=== PATIENT | female | born 1955 | race Caucasian/White ===

== ENCOUNTER 2021-02-03 10:15 | Emergency (ER) | payer BC ==
[2021-02-03] MEDS ORDERED: Morphine 4 MG/ML Syringe IVPUSH PRN (10:24)
[2021-02-03] MEDS ORDERED: Sodium Chloride 0.9% 10 ML Syringe FLUSH PRN (10:24)
[2021-02-03] MEDS ORDERED: Nitroglycerin 0.4 MG Tab.SL SL PRN (10:24)
[2021-02-03] MEDS ORDERED: Aspirin 81 MG Tab.Chew PO ONE (10:24)
--- NOTE | 2021-02-03 10:27 | EDM.PDOC ---
ED HPI GENERAL MEDICAL PROBLEM - General Stated Complaint: LEFT ARM PAIN AND CHEST PAIN Time Seen by Provider: 02/03/21 10:22 Source of Information: Reports: Patient, Family, RN Notes Reviewed History Limitations: Reports: No Limitations - History of Present Illness INITIAL COMMENTS - FREE TEXT/NARRATIVE: 65-year-old female presents emergency department day complaint of chest pain, she states the chest pain started last night it is kind of a dull ache rated 6 out of 10 she does feel short of breath has had diaphoresis on and off but no nausea. Does have a known cardiac history stenting 3 years ago last stress test was at that time. chest pain Pain Score (Numeric/FACES): 0 - Related Data Allergies Allergy/AdvReac Type Severity Reaction Status Date / Time hydrocodone Allergy Itching Verified 02/03/21 10:27 [id number] Reductase Allergy Sweating Verified 02/03/21 10:27 Inhibitor Home Meds: Home Meds Aspirin 81 mg PO BEDTIME 02/03/21 [History] Evolocumab [Repatha Syringe] 140 mg SQ ASDIRECTED 02/03/21 [History] Furosemide [Lasix] 40 mg PO ASDIRECTED PRN 02/03/21 [History] Gabapentin [Neurontin] 300 mg PO BEDTIME 02/03/21 [History] Magnesium 400 mg PO DAILY 02/03/21 [History] Metoprolol Succinate 50 mg PO DAILY 02/03/21 [History] Pramipexole Di-HCl [Mirapex] 0.5 mg PO DAILY 02/03/21 [History] Zolpidem Tartrate [Ambien] 10 mg PO DAILY 02/03/21 [History] buPROPion [buPROPion XL] 150 mg PO DAILY 02/03/21 [History] Past Medical History Cardiovascular History: Reports: CAD, High Cholesterol, Hypertension Social & Family History - Tobacco Use Tobacco Use Status *Q: Never Tobacco User ED ROS GENERAL - Review of Systems Review Of Systems: See Below Constitutional: Reports: Diaphoresis Respiratory: Reports: Shortness of Breath Cardiovascular: Reports: Chest Pain, Dyspnea on Exertion GI/Abdominal: Reports: No Symptoms ED EXAM, GENERAL - Physical Exam Exam: See Below Exam Limited By: No Limitations General Appearance: Alert, WD/WN, No Apparent Distress Respiratory/Chest: No Respiratory Distress, Lungs Clear, Normal Breath Sounds, No Accessory Muscle Use, Chest Non-Tender Cardiovascular: Regular Rate, Rhythm, No Murmur GI/Abdominal: Soft, Non-Tender #1 Interpretation EKG Date: 02/03/21 Time: 10:32 Rhythm: NSR [place]: Normal P-Wave: Present QRS: Normal ST-T: Normal QT: Normal Comparison: NA - No Prior EKG Course - Vital Signs Last Recorded V/S: Last Vital Signs Temp 96 F L 02/03/21 10:36 Pulse 76 02/03/21 10:36 Resp 12 02/03/21 11:13 BP 113/43 L 02/03/21 11:13 Pulse Ox 98 02/03/21 11:13 - Orders/Labs/Meds Orders: Active Orders 24 hr Category Date Time Status Cardiac Monitoring [RC] .As Directed Care 02/03/21 10:24 Active EKG Documentation Completion [RC] ASDIRECTED Care 02/03/21 10:25 Active Peripheral IV Care [RC] . DIRECTED Care 02/03/21 10:25 Active Morphine Med 02/03/21 10:24 Active 4 mg IVPUSH Q10M PRN Nitroglycerin [Nitrostat] Med 02/03/21 10:24 Active 0.4 mg SL Q5M PRN Sodium Chloride 0.9% [Saline Flush] Med 02/03/21 10:24 Active 10 ml FLUSH ASDIRECTED PRN Peripheral IV Insertion Adult [OM.PC] Stat Oth 02/03/21 10:24 Ordered Saline Lock Insert [OM.PC] Stat Oth 02/03/21 10:24 Ordered EKG 12 Lead [EK] Stat Ther 02/03/21 10:25 Ordered Medication Orders Morphine Sulfate (Morphine 4 Mg/Ml Syringe) 4 mg IVPUSH Q10M PRN PRN Reason: Chest Pain Stop: 02/04/21 10:25 Nitroglycerin (Nitroglycerin 0.4 Mg Tab.Sl) 0.4 mg SL Q5M PRN PRN Reason: Chest Pain Stop: 02/04/21 10:25 Last Admin: 02/03/21 10:30 Dose: 0.4 mg Documented by: DON Sodium Chloride (Sodium Chloride 0.9% 10 Ml Syringe) 10 ml FLUSH ASDIRECTED PRN PRN Reason: Keep Vein Open Last Admin: 02/03/21 10:51 Dose: 10 ml Documented by: DON Labs: Laboratory Tests 02/03/21 02/03/21 Range/Units 10:36 10:36 WBC 6.5 (4.5-11.0) K/uL RBC 4.56 (3.30-5.50) M/uL Hgb 13.9 (12.0-15.0) g/dL Hct 42.0 (36.0-48.0) % MCV 92 (80-98) fL MCH 31 (27-31) pg MCHC 33 (32-36) % Plt Count 280 (150-400) K/uL Neut % (Auto) 49.0 (36-66) % Lymph % (Auto) 35.5 (24-44) % Andrew % (Auto) 10.3 H (2-6) % Eos % (Auto) 4.9 H (2-4) % Baso % (Auto) 0.3 (0-1) % Sodium 141 (140-148) mmol/L Potassium 4.3 (3.6-5.2) mmol/L Chloride 105 (100-108) mmol/L Carbon Dioxide 28 (21-32) mmol/L Anion Gap 7.7 (5.0-14.0) mmol/L BUN 21 H (7-18) mg/dL Creatinine 0.9 (0.6-1.0) mg/dL Est Cr Clr Drug Dosing 54.53 mL/min Estimated GFR (MDRD) > 60 (>60) Glucose 108 H (74-106) mg/dL Calcium 8.9 (8.5-10.1) mg/dL Troponin I < 0.017 (0.000-0.056) ng/mL Meds: Medications Generic Name Dose Route Start Last Admin Trade Name Freq PRN Reason Stop Dose Admin Morphine Sulfate 4 mg 02/03/21 10:24 Morphine 4 Mg/Ml Syringe IVPUSH 02/04/21 10:25 Q10M PRN Chest Pain Nitroglycerin 0.4 mg 02/03/21 10:24 02/03/21 10:30 Nitroglycerin 0.4 Mg Tab.Sl SL 02/04/21 10:25 0.4 mg Q5M PRN Administration Chest Pain Sodium Chloride 10 ml 02/03/21 10:24 02/03/21 10:51 Sodium Chloride 0.9% 10 Ml Syringe FLUSH 10 ml ASDIRECTED PRN Administration Keep Vein Open Discontinued Medications Generic Name Dose Route Start Last Admin Trade Name [place] PRN Reason Stop Dose Admin Aspirin 324 mg 02/03/21 10:24 02/03/21 10:35 Aspirin 81 Mg Tab.Chew PO 02/03/21 10:25 324 mg ONETIME ONE Administration Departure - Departure Time of Disposition: 11:34 Disposition: Home, Self-Care 01 Condition: Fair Clinical Impression: Atypical chest pain Instructions: Nonspecific Chest Pain, Adult Referrals: PCP,None [Primary Care Provider] - Additional Instructions: Continue with your regular medications, try a Tylenol or ibuprofen as needed for pain control, keep your follow-up appointment with cardiology and primary care next, call or return to the emergency department with worsening symptoms Sepsis Event Note (ED) - Focused Exam Vital Signs: Vital Signs Temp Pulse Resp BP BP Pulse Ox 02/03/21 11:13 12 113/43 L 98 02/03/21 10:40 14 127/76 93 L 02/03/21 10:36 96 F L 76 16 146/68 H 97 02/03/21 10:30 147/68 H - My Orders Last 24 Hours: My Active Orders 02/03/21 10:24 Cardiac Monitoring [RC] .As Directed Morphine 4 mg IVPUSH Q10M PRN Nitroglycerin [Nitrostat] 0.4 mg SL Q5M PRN Sodium Chloride 0.9% [Saline Flush] 10 ml FLUSH ASDIRECTED PRN Peripheral IV Insertion Adult [OM.PC] Stat Saline Lock Insert [OM.PC] Stat 02/03/21 10:25 EKG Documentation Completion [RC] ASDIRECTED Peripheral IV Care [RC] . DIRECTED EKG 12 Lead [EK] Stat - Assessment/Plan Last 24 Hours: My Active Orders 02/03/21 10:24 Cardiac Monitoring [RC] .As Directed Morphine 4 mg IVPUSH Q10M PRN Nitroglycerin [Nitrostat] 0.4 mg SL Q5M PRN Sodium Chloride 0.9% [Saline Flush] 10 ml FLUSH ASDIRECTED PRN Peripheral IV Insertion Adult [OM.PC] Stat Saline Lock Insert [OM.PC] Stat 02/03/21 10:25 EKG Documentation Completion [RC] ASDIRECTED Peripheral IV Care [RC] . DIRECTED EKG 12 Lead [EK] Stat Plan: Assessment Acuity = acute Site and laterality = atypical chest pain Etiology = unknown Manifestations = none Location of injury = Home Lab values = CBC, BMP, troponin all within normal limits chest x-ray shows no acute process EKG demonstrates normal sinus rhythm Plan I did review lab work EKG results with her she does have follow-up appointment with her travel rn or on Saturday of next week she will continue with her regular medications This note was dictated using [employer] voice recognition software please call with any questions on syntax or grammar.
--- NOTE | 2021-02-03 10:53 | CR ---
CHEST: Portable 02/03/2021 at 10:44 AM CLINICAL HISTORY:Chest pain COMPARISON:2013 FINDINGS: The heart size, pulmonary vascularity and hilar structures are normal. No infiltrate effusion or pneumothorax is seen. IMPRESSION: No acute cardiopulmonary process.
== END 2021-02-03 12:01 | disposition home or self-care (01) ==
LOC: JP.ED 10:15
DX: R07.89 Other chest pain (principal); I25.10 Atherosclerotic heart disease of native coronary artery without angina pectoris; I10 Essential (primary) hypertension; Z95.5 Presence of coronary angioplasty implant and graft; Z88.5 Allergy status to narcotic agent; Z88.8 Allergy status to other drugs, medicaments and biological substances; Z79.82 Long term (current) use of aspirin; Z79.899 Other long term (current) drug therapy
CPT/HCPCS: 36415; 71045; 80048; 84484; 85025; 93005; 99285; A9270